=== PATIENT | female | born 1995 | race Caucasian/White ===

== ENCOUNTER 2016-11-12 09:21 | Emergency (ER) | payer MEDICAID, OTHER ==
[~2016-11-12] VITALS: Ht 160 cm; Wt 66.0 kg
[~2016-11-12 09:21] MED LIST: CIPR-9 PO; PROM25TA5 PO
[2016-11-12 09:28] VITALS: BP 111/75; PULSE 91; RESP 16; TEMP 99; O2SAT 98
[2016-11-12] MEDS ORDERED: PANTOPRAZOLE SODIUM 40 MG VIAL IV PUSH ONE (10:30)
[2016-11-12] MEDS ORDERED: SODIUM CHLOR 0.9% 1000 ML INJ 1,000 ML IV ONE (10:30)
--- NOTE | 2016-11-12 10:37 | PD ---
HPI Chief Complaint: GI Complaint Time Seen by Provider: 10:13 Travel History International Travel<30 days: No Contact w/Intl Traveler<30days: No Traveled to known affect area: No History of Present Illness HPI 20-year-old female complains of abdominal pain nausea vomiting. Patient states the symptoms started about 5 months ago. Patient states that the pain is sharp pain burning pain localized around the epigastric area. Patient denies any pain radiation. Patient states that she has intermittent nausea vomiting with the pain. Patient has been seen in emergency room several times in the past for the same problem. Patient was diagnosed with ulcer and given prescription for Prilosec and amoxicillin in the past. Patient states that the symptoms got better and get worse again. Patient denies any fever chills. Patient denies any dysuria or frequency. Patient denies any vaginal discharge or bleeding. PFSH Past Medical History Anxiety: Yes Depression: Yes Diabetes: No Diminished Hearing: No Medical other: Yes (ULCER, H PYLORI) Immunizations Current: Yes Migraines: Yes ?: Not LMP: Approx. 1 month ago, irr. Social History Alcohol Use: No Tobacco Use: Yes Substance Use: Yes (MARIJUANA) Allergies-Medications (Allergen,Severity, Reaction): Coded Allergies: Sulfa (Verified Allergy, Severe, RASH, HIVES, 11/12/16) Reported Meds & Prescriptions Reported Meds & Active Scripts Active Zofran Odt (Ondansetron Odt) 4 Mg Tab 4 Mg SL Q6HR PRN Bentyl (Dicyclomine HCl) 20 Mg Tab 20 Mg PO TID Carafate (Sucralfate) 1 Gm Tab 1 Gm PO QID On empty stomach Protonix (Pantoprazole Sodium) 20 Mg Tab 20 Mg PO DAILY Cipro (Ciprofloxacin HCl) 500 Mg Tab 500 Mg PO BID Review of Systems General / Constitutional: No: Fever Eyes: No: Visual changes HENT: No: Headaches Cardiovascular: No: Chest Pain or Discomfort Respiratory: No: Shortness of Breath Gastrointestinal: Positive: Nausea, Vomiting, Abdominal Pain Genitourinary: No: Dysuria Musculoskeletal: No: Pain Skin: No Rash Neurologic: No: Weakness Psychiatric: No: Depression Endocrine: No: Polydipsia Hematologic/Lymphatic: No: Easy Bruising Physical Exam Narrative GENERAL: Well-nourished, well-developed patient. SKIN: Warm and dry. HEAD: Normocephalic. EYES: No scleral icterus. No injection or drainage. NECK: Supple, trachea midline. No JVD or lymphadenopathy. CARDIOVASCULAR: Regular rate and rhythm without murmurs, gallops, or rubs. RESPIRATORY: Breath sounds equal bilaterally. No accessory muscle use. GASTROINTESTINAL: Abdomen soft, nondistended. Patient has mild tenderness on palpation epigastric area. No rebound tenderness. No mass. MUSCULOSKELETAL: No cyanosis, or edema. BACK: Nontender without obvious deformity. No CVA tenderness. Neurologic exam normal. Data Data Last Documented VS Vital Signs Date Time Temp Pulse Resp B/P Pulse Ox O2 Delivery O2 Flow Rate FiO2 11/12/16 12:52 88 17 100/59 100 Room Air 11/12/16 09:28 99.0 Orders Complete Blood Count With Diff (11/12/16 10:20) Comprehensive Metabolic Panel (11/12/16 10:20) Lipase (11/12/16 10:20) Urinalysis - C+S If Indicated (11/12/16 10:20) Iv Access Insert/Monitor (11/12/16 10:20) Ed Urine Pregnancytest Poc (11/12/16 10:20) Sodium Chlor 0.9% 1000 Ml Inj (Ns 1000 M (11/12/16 10:30) Pantoprazole Inj (Protonix Inj) (11/12/16 10:30) Ondansetron Inj (Zofran Inj) (11/12/16 11:30) Urine Culture (11/12/16 12:10) Labs Laboratory Tests Test 11/12/16 11/12/16 10:35 12:10 White Blood Count 5.2 TH/MM3 Red Blood Count 4.80 MIL/MM3 Hemoglobin 14.2 GM/DL Hematocrit 41.2 % Mean Corpuscular Volume 85.9 FL Mean Corpuscular Hemoglobin 29.5 PG Mean Corpuscular Hemoglobin 34.4 % Concent Red Cell Distribution Width 12.1 % Platelet Count 189 TH/MM3 Mean Platelet Volume 9.0 FL Neutrophils (%) (Auto) 73.0 % Lymphocytes (%) (Auto) 7.8 % Monocytes (%) (Auto) 14.9 % Eosinophils (%) (Auto) 0.0 % Basophils (%) (Auto) 4.3 % Neutrophils # (Auto) 3.8 TH/MM3 Lymphocytes # (Auto) 0.4 TH/MM3 Monocytes # (Auto) 0.8 TH/MM3 Eosinophils # (Auto) 0.0 TH/MM3 Basophils # (Auto) 0.2 TH/MM3 CBC Comment DIFF FINAL Differential Comment Sodium Level 142 MEQ/L Potassium Level 4.7 MEQ/L Chloride Level 108 MEQ/L Carbon Dioxide Level 23.8 MEQ/L Anion Gap 10 MEQ/L Blood Urea Nitrogen 11 MG/DL Creatinine 0.86 MG/DL Estimat Glomerular Filtration 85 ML/MIN Rate Random Glucose 99 MG/DL Calcium Level 8.8 MG/DL Total Bilirubin 0.5 MG/DL Aspartate Amino Transf 40 U/L (AST/SGOT) Alanine Aminotransferase 37 U/L (ALT/SGPT) Alkaline Phosphatase 78 U/L Total Protein 8.4 GM/DL Albumin 4.2 GM/DL Lipase 116 U/L Urine Color YELLOW Urine Turbidity HAZY Urine pH 6.0 Urine Specific [place] 1.024 Urine Protein TRACE mg/dL Urine Glucose (UA) NEG mg/dL Urine Ketones 40 mg/dL Urine Occult Blood TRACE Urine Nitrite POS Urine Bilirubin NEG Urine Leukocyte Esterase MOD Urine RBC 0-3 /hpf Urine WBC INNUM /hpf Urine Squamous Epithelial > 8 /hpf Cells Urine Bacteria MANY /hpf Urine Mucus FEW /lpf Microscopic Urinalysis Comment CULTURE INDICATED MDM Medical Decision Making Medical Screen Exam Complete: Yes Emergency Medical Condition: Yes Interpretation(s) 12:15 PM. CBC within normal limit. WBC 5.2. 73 neutrophil. 14 monos. CMP within normal limit. AST 40. 12:45 PM. UA positive for WBC and bacteria. Differential Diagnosis Differential diagnosis including gastritis, PUD, pancreatitis, cholecystitis, colitis, UTI, pyelonephritis. Narrative Course 20-year-old female with recurrent epigastric abdominal pain and nausea vomiting. Normal saline solution 1 L IV bolus. Protonix 40 mg IV. Diagnosis Primary Impression: Gastritis Qualified Code: K29.50 - Chronic gastritis without bleeding, unspecified gastritis type Additional Impression: UTI (urinary tract infection) Qualified Code: N30.00 - Acute cystitis without hematuria Patient Instructions: General Instructions Additional Instructions: Take medications as directed. Follow-up with personal physician, GI specialist. Return if worse. Med/Other Pt SpecificInfo: Prescription(s) given Scripts Nitrofurantoin Monohydrate Macrocrystals (Macrobid)100 Mg [id number] Mg PO BID #20 CAP Ref 0 Prov:Adrian Walker MD 11/12/16 Ondansetron Odt (Zofran Odt)4 Mg Tab4 Mg SL Q6HR PRN (Nausea/Vomiting) #10 TAB Prov:Adrian Walker MD 11/12/16 Dicyclomine (Bentyl)20 Mg Tab20 Mg PO TID #30 TAB Ref 0 Prov:Adrian Walker MD 11/12/16 Sucralfate (Carafate)1 Gm Tab1 Gm PO QID #120 TAB On empty stomach Prov:Adrian Walker MD 11/12/16 Pantoprazole (Protonix)20 Mg Tab20 Mg PO DAILY #30 TAB Prov:Adrian Walker MD 11/12/16 Ciprofloxacin (Cipro)500 Mg [id number] Mg PO BID #20 TAB Prov:Adrian Walker MD 11/12/16 Disposition: 01 DISCHARGE HOME Condition: Stable Adrian Walker MD Nov 12, 2016 10:29
[2016-11-12 10:44] LABS: AUTOMATED NEUTROPHIL # 3.8 TH/MM3 (1.8-7.7); BASOPHIL # 0.2 TH/MM3 (0-0.2); BASOPHIL % 4.3 % (0.0-2.0); HEMATOCRIT 41.2 % (35.0-46.0); HEMO FLAGS DIFF FINAL; LYMPH % 7.8 % (9.0-44.0); LYMPHOCYTE # 0.4 TH/MM3 (1.0-4.8); MEAN CELL VOLUME 85.9 FL (80.0-100.0); MEAN CORPUSCULAR HEMOGLOBIN 29.5 PG (27.0-34.0); MEAN CORPUSCULAR HGB CONC 34.4 % (32.0-36.0); MONO % 14.9 % (0.0-8.0); PLATELET COUNT 189 TH/MM3 (150-450); RED CELL DISTRIBUTION WIDTH 12.1 % (11.6-17.2); WHITE BLOOD COUNT 5.2 TH/MM3 (4.0-11.0)
[2016-11-12 10:47] LABS: CHLORIDE 108 MEQ/L (98-107); POTASSIUM 4.7 MEQ/L (3.5-5.1); SODIUM (NA) 142 MEQ/L (136-145)
[2016-11-12 10:51] LABS: ANION GAP 10 MEQ/L (5-15); BICARBONATE 23.8 MEQ/L (21.0-32.0); BLOOD UREA NITROGEN 11 MG/DL (7-18)
[2016-11-12 10:54] LABS: ALT (GPT) 37 U/L (9-42); AST (GOT) 40 U/L (16-38); GLOMERULAR FILTRATION RATE 85 ML/MIN (>89)
[2016-11-12 10:56] LABS: TOTAL BILIRUBIN ADULT 0.5 MG/DL (0.2-1.0)
[2016-11-12 10:57] LABS: ALKALINE PHOSPHATASE 78 U/L (45-117)
[2016-11-12] MEDS ORDERED: ONDANSETRON HCL 4 MG/2 ML VIAL IV PUSH ONE (11:30)
[2016-11-12 12:20] LABS: BLOOD, URINE TRACE (NEG); GLUCOSE,URINE NEG (NEG); KETONE, URINE 40 mg/dL (NEG); NITRITE,URINE POS (NEG)
[2016-11-12 12:21] LABS: URINE COLOR YELLOW (YELLW/STRAW)
[2016-11-12 12:26] LABS: MUCUS URINE FEW /lpf (OCC); RBC, URINE 0-3 /hpf (0-3); WBC, URINE INNUM /hpf (0-5)
[2016-11-12 12:27] LABS: BACTERIA, URINE MANY /hpf; COMMENT (UR) CULTURE INDICATED; CULTURE IF INDICATED CULTURE INDICATED; SQUAMOUS EPITHELIAL CELL URINE > 8 /hpf (0-5)
[2016-11-12 12:52] VITALS: BP 100/59; PULSE 88; RESP 17; O2SAT 100
[2016-11-12] MEDS ORDERED: PANT20 PO (12:52)
[2016-11-12] MEDS ORDERED: BENT20TA PO (12:52)
[2016-11-12] MEDS ORDERED: CARA1TAB6 PO (12:52)
[2016-11-12] MEDS ORDERED: ZOFR4TAB3 SL (12:52)
[2016-11-12] MEDS ORDERED: CIPR-9 PO (12:52)
[2016-11-12] MEDS ORDERED: MACR100C2 PO (13:14)
== END 2016-11-12 13:17 | disposition home or self-care (01) ==
LOC: PHED 09:21
DX: K29.50 Unspecified chronic gastritis without bleeding (principal); N30.00 Acute cystitis without hematuria; B96.1 Klebsiella pneumoniae [K. pneumoniae] as the cause of diseases classified elsewhere; Z72.0 Tobacco use; Z87.19 Personal history of other diseases of the digestive system; Z86.69 Personal history of other diseases of the nervous system and sense organs; Z86.59 Personal history of other mental and behavioral disorders
CPT/HCPCS: 80053; 81001; 83690; 84703; 85025; 87077; 87086; 87186; 96361; 96374; 96375; 99284; C9113; J2405; J7030

== ENCOUNTER 2017-06-29 15:11 | Emergency (ER) | payer MEDICAID, OTHER ==
[~2017-06-29] VITALS: Ht 160 cm; Wt 68.8 kg
[~2017-06-29 15:11] MED LIST changes: +BENT20TA PO; +CARA1TAB6 PO; +MACR100C2 PO; +PANT20 PO; -PROM25TA5 PO; +ZOFR4TAB3 SL
[2017-06-29 15:19] VITALS: BP 139/85; PULSE 88; RESP 20; TEMP 98.6; O2SAT 98
[2017-06-29] MEDS ORDERED: SODIUM CHLOR 0.9% 1000 ML INJ 1,000 ML IV ONE (15:40)
[2017-06-29] MEDS ORDERED: KETOROLAC TROMETHAMINE 30 MG/ML (IVP) VIAL IVP ONE (15:45)
[2017-06-29] MEDS ORDERED: SODIUM CHLORIDE 0.9% FLUSH 10 ML FLUSH IVF PRN (15:45)
[2017-06-29] MEDS ORDERED: ONDANSETRON HCL 4 MG/2 ML VIAL IVP ONE (15:45)
--- NOTE | 2017-06-29 15:49 | PD ---
HPI Chief Complaint: Flank/Kidney Pain Time Seen by Provider: 15:40 Travel History International Travel<30 days: No Contact w/Intl Traveler<30days: No Traveled to known affect area: No History of Present Illness HPI Patient presents with complaints of lower abdominal pain with left flank pain radiating into the groin. Reports frequent UTIs. Reports mild nausea. Denies vomiting. Initially pain was aggravated by standing for long periods however this morning it has been constant in nature. Denies . Denies any new chest pain shortness of breath urinary or bowel symptoms. Subjective fever. Past medical history for depression anxiety and migraines. PFSH Past Medical History Anxiety: Yes Depression: Yes Diabetes: No Diminished Hearing: No Immunizations Current: Yes Migraines: Yes ?: Not LMP: 2 MONTHS AGO Past Surgical History Surgical History: No Previous Surgery Social History Alcohol Use: No Tobacco Use: Yes Substance Use: Yes (MARIJUANA) Allergies-Medications (Allergen,Severity, Reaction): Coded Allergies: Sulfa (Sulfonamide Antibiotics) (Unverified Allergy, Severe, RASH, HIVES, 06/29/17) Reported Meds & Prescriptions Reported Meds & Active Scripts Active Keflex (Cephalexin) 500 Mg Cap 500 Mg PO Q12H 7 Days Macrobid (Nitrofurantoin Monoh/Nitrofur Macro) 100 Mg Cap 100 Mg PO BID Zofran Odt (Ondansetron Odt) 4 Mg Tab 4 Mg SL Q6HR PRN Bentyl (Dicyclomine HCl) 20 Mg Tab 20 Mg PO TID Carafate (Sucralfate) 1 Gm Tab 1 Gm PO QID On empty stomach Protonix (Pantoprazole Sodium) 20 Mg Tab 20 Mg PO DAILY Cipro (Ciprofloxacin HCl) 500 Mg Tab 500 Mg PO BID Review of Systems General / Constitutional: No: Fever Eyes: No: Visual changes HENT: No: Headaches Cardiovascular: No: Chest Pain or Discomfort Respiratory: No: Shortness of Breath Gastrointestinal: Positive: Abdominal Pain Genitourinary: Positive: Flank Pain, No: Dysuria Musculoskeletal: No: Pain Skin: No Rash Neurologic: No: Weakness Psychiatric: No: Depression Endocrine: No: Polydipsia Hematologic/Lymphatic: No: Easy Bruising Physical Exam Narrative GENERAL: Well-nourished, well-developed patient. SKIN: Focused skin assessment warm/dry. HEAD: Normocephalic. EYES: No scleral icterus. No injection or drainage. NECK: Supple, trachea midline. No JVD or lymphadenopathy. CARDIOVASCULAR: Regular rate and rhythm without murmurs, gallops, or rubs. RESPIRATORY: Breath sounds equal bilaterally. No accessory muscle use. GASTROINTESTINAL: Abdomen soft, diffusely tender lower abdomen, nondistended. MUSCULOSKELETAL: No cyanosis, or edema. BACK: Nontender without obvious deformity. No CVA tenderness. Data Data Last Documented VS Vital Signs Date Time Temp Pulse Resp B/P (MAP) Pulse Ox O2 Delivery O2 Flow Rate FiO2 06/29/17 19:04 66 18 113/62 (79) 99 06/29/17 18:02 Room Air 06/29/17 15:19 98.6 Orders Orders Complete Blood Count With Diff (06/29/17 15:40) Comprehensive Metabolic Panel (06/29/17 15:40) Urinalysis - C+S If Indicated (06/29/17 15:40) Ed Urine Pregnancytest Poc (06/29/17 15:40) Ct Abd/Pel W/O Iv Contrast (06/29/17 15:40) Ecg Monitoring (06/29/17 15:40) Iv Access Insert/Monitor (06/29/17 15:40) Ketorolac Inj (Toradol Inj) (06/29/17 15:45) Ondansetron Inj (Zofran Inj) (06/29/17 15:45) Sodium Chloride 0.9% Flush (Ns Flush) (06/29/17 15:45) Sodium Chlor 0.9% 1000 Ml Inj (Ns 1000 M (06/29/17 15:40) Urine Culture (06/29/17 16:49) Ceftriaxone Inj (Rocephin Inj) (06/29/17 17:45) Labs Laboratory Tests Test 06/29/17 16:10 06/29/17 16:49 White Blood Count 13.3 TH/MM3 Red Blood Count 4.73 MIL/MM3 Hemoglobin 13.9 GM/DL Hematocrit 41.4 % Mean Corpuscular Volume 87.5 FL Mean Corpuscular Hemoglobin 29.3 PG Mean Corpuscular Hemoglobin Concent 33.5 % Red Cell Distribution Width 12.1 % Platelet Count 245 TH/MM3 Mean Platelet Volume 9.4 FL Neutrophils (%) (Auto) 82.6 % Lymphocytes (%) (Auto) 8.5 % Monocytes (%) (Auto) 7.6 % Eosinophils (%) (Auto) 0.2 % Basophils (%) (Auto) 1.1 % Neutrophils # (Auto) 11.1 TH/MM3 Lymphocytes # (Auto) 1.1 TH/MM3 Monocytes # (Auto) 1.0 TH/MM3 Eosinophils # (Auto) 0.0 TH/MM3 Basophils # (Auto) 0.1 TH/MM3 CBC Comment AUTO DIFF Differential Comment AUTO DIFF CONFIRMED Blood Urea Nitrogen 11 MG/DL Creatinine 0.91 MG/DL Random Glucose 94 MG/DL Total Protein 8.4 GM/DL Albumin 4.2 GM/DL Calcium Level 9.4 MG/DL Alkaline Phosphatase 96 U/L Aspartate Amino Transf (AST/SGOT) 15 U/L Alanine Aminotransferase (ALT/SGPT) 21 U/L Total Bilirubin 0.8 MG/DL Sodium Level 137 MEQ/L Potassium Level 3.8 MEQ/L Chloride Level 103 MEQ/L Carbon Dioxide Level 25.3 MEQ/L Anion Gap 9 MEQ/L Estimat Glomerular Filtration Rate 79 ML/MIN Urine Collection Type CLEAN CATCH Urine Color YELLOW Urine Turbidity MOD Urine pH 7.0 Urine Specific [place] 1.018 Urine Protein 100 mg/dL Urine Glucose (UA) NEG mg/dL Urine Ketones 40 mg/dL Urine Occult Blood SMALL Urine Nitrite NEG Urine Bilirubin NEG Urine Leukocyte Esterase MOD Urine RBC 4-9 /hpf Urine WBC 25-49 /hpf Urine WBC Clumps FEW Urine Squamous Epithelial Cells 6-8 /hpf Urine Transitional Epithelial Cells 0-5 /hpf Urine Amorphous Sediment MOD Urine Bacteria MANY /hpf Microscopic Urinalysis Comment CULTURE INDICATED Urine Collection Time 1619 MDM Medical Decision Making Medical Screen Exam Complete: Yes Emergency Medical Condition: Yes Differential Diagnosis Nephrolithiasis, UTI, cystitis Narrative Course assessment and plan discussed with patient and partner bedside. Physician Communication Physician Communication Case discussed and care transferred to Dr. Santos Scripts Cephalexin (Keflex) 500 Mg Cap 500 MG PO Q12H for Infection for 7 Days, #14 CAP 0 Refills Prov: Sudha Mclaughlin MD 06/29/17 Geo Nash MD Jun 29, 2017 15:49
[2017-06-29 16:13] VITALS: BP 116/70; PULSE 81; RESP 18; O2SAT 99
[2017-06-29 16:34] LABS: AUTOMATED NEUTROPHIL # 11.1 TH/MM3 (1.8-7.7); BASOPHIL # 0.1 TH/MM3 (0-0.2); BASOPHIL % 1.1 % (0.0-2.0); EOSINOPHIL % 0.2 % (0.0-4.0); HEMATOCRIT 41.4 % (35.0-46.0); LYMPH % 8.5 % (9.0-44.0); LYMPHOCYTE # 1.1 TH/MM3 (1.0-4.8); MEAN CELL VOLUME 87.5 FL (80.0-100.0); MEAN CORPUSCULAR HEMOGLOBIN 29.3 PG (27.0-34.0); MEAN CORPUSCULAR HGB CONC 33.5 % (32.0-36.0); MONO % 7.6 % (0.0-8.0); NEUT % 82.6 % (16.0-70.0); PLATELET COUNT 245 TH/MM3 (150-450); RED BLOOD COUNT 4.73 MIL/MM3 (4.00-5.30); RED CELL DISTRIBUTION WIDTH 12.1 % (11.6-17.2); WHITE BLOOD COUNT 13.3 TH/MM3 (4.0-11.0)
[2017-06-29 16:36] LABS: HEMO FLAGS AUTO DIFF
[2017-06-29 17:00] LABS: BLOOD, URINE SMALL (NEG); GLUCOSE,URINE NEG (NEG); KETONE, URINE 40 mg/dL (NEG); NITRITE,URINE NEG (NEG)
[2017-06-29 17:03] LABS: SCAN/DIFF AUTO DIFF CONFIRMED
--- NOTE | 2017-06-29 17:23 | RADRPT ---
EXAM DATE/TIME: 06/29/2017 17:01 [place] COMPARISON: No previous studies available for comparison. INDICATIONS : Left flank pain that radiates to left lower quadrant, nausea. ORAL CONTRAST: No oral contrast ingested. RADIATION DOSE: 11.78 CTDIvol (mGy) MEDICAL HISTORY : None SURGICAL HISTORY : None. ENCOUNTER: Initial ACUITY: 3 days PAIN SCALE: 7/10 LOCATION: Left flank TECHNIQUE: Volumetric scanning of the abdomen and pelvis was performed. Using automated exposure control and ad justment of the mA and/or kV according to patient size, radiation dose was kept as low as reasonably achievable to obtain optimal diagnostic quality images. DICOM format image data is available electro nically for review and comparison. FINDINGS: LOWER LUNGS: The visualized lower lungs are clear. LIVER: Homogeneous density without lesion. There is no dilation of the biliary tree. No calcified gallston es. SPLEEN: Normal size without lesion. PANCREAS: Within normal limits. KIDNEYS: Normal in size and shape. There is no mass or renal calculi. There is mild prominence of the left ce ntral collecting system and ureter compared to the right. This is difficult to follow in the region o f the pelvis. There is a small calcification on the posterior aspect of the left side of the bladder in axial image #131 which could represent a small 2 mm distal ureteral calculus. There are adjacent c alcified phleboliths in the left side of the pelvis. ADRENAL GLANDS: Within normal limits. VASCULAR: There is no aortic aneurysm. BOWEL/MESENTERY: The stomach, small bowel, and colon demonstrate no acute abnormality. There is no free intraperitone al air or fluid. ABDOMINAL WALL: Within normal limits. RETROPERITONEUM: There is no lymphadenopathy. BLADDER: No wall thickening or mass. REPRODUCTIVE: Within normal limits. INGUINAL: There is no lymphadenopathy or hernia. MUSCULOSKELETAL: Within normal limits for patient age. CONCLUSION: 1. Possible small 2 mm distal left ureteral calculus versus phlebolith. There is slight prominence of the left collecting system and ureter compared to the right. 2. There are no renal calculi. David Victor MD on June 29, 2017 at 17:17 Board Certified Radiologist. This report was verified electronically.
[2017-06-29 17:25] LABS: METHOD OF COLLECTION CLEAN CATCH
[2017-06-29 17:26] LABS: URINE COLOR YELLOW (YELLW/STRAW)
[2017-06-29 17:28] LABS: BACTERIA, URINE MANY /hpf; COMMENT (UR) CULTURE INDICATED; COMMENT2 (UR) MUCOUS PRESENT; CULTURE IF INDICATED CULTURE INDICATED; TRANSITIONAL EPI CELLS, URINE 0-5 /hpf
[2017-06-29 17:32] LABS: ALKALINE PHOSPHATASE 96 U/L (45-117); ALT (GPT) 21 U/L (9-42); AST (GOT) 15 U/L (16-38); BLOOD UREA NITROGEN 11 MG/DL (7-18); GLOMERULAR FILTRATION RATE 79 ML/MIN (>89); TOTAL BILIRUBIN ADULT 0.8 MG/DL (0.2-1.0)
[2017-06-29 17:33] LABS: ANION GAP 9 MEQ/L (5-15); BICARBONATE 25.3 MEQ/L (21.0-32.0); CHLORIDE 103 MEQ/L (98-107); POTASSIUM 3.8 MEQ/L (3.5-5.1); SODIUM (NA) 137 MEQ/L (136-145)
[2017-06-29] MEDS ORDERED: cefTRIAXone INJ 1,000 MG in SODIUM CHLORIDE 0.9% INJ 100 ML IV ONE (17:45)
[2017-06-29] MEDS ORDERED: CEPH-460 PO (17:50)
--- NOTE | 2017-06-29 17:50 | PD ---
Data Data Last Documented VS Vital Signs Date Time Temp Pulse Resp B/P (MAP) Pulse Ox O2 Delivery O2 Flow Rate FiO2 06/29/17 16:13 81 18 116/70 (85) 99 Room Air 06/29/17 15:19 98.6 Orders Orders Complete Blood Count With Diff (06/29/17 15:40) Comprehensive Metabolic Panel (06/29/17 15:40) Urinalysis - C+S If Indicated (06/29/17 15:40) Ed Urine Pregnancytest Poc (06/29/17 15:40) Ct Abd/Pel W/O Iv Contrast (06/29/17 15:40) Ecg Monitoring (06/29/17 15:40) Iv Access Insert/Monitor (06/29/17 15:40) Ketorolac Inj (Toradol Inj) (06/29/17 15:45) Ondansetron Inj (Zofran Inj) (06/29/17 15:45) Sodium Chloride 0.9% Flush (Ns Flush) (06/29/17 15:45) Sodium Chlor 0.9% 1000 Ml Inj (Ns 1000 M (06/29/17 15:40) Urine Culture (06/29/17 16:49) Ceftriaxone Inj (Rocephin Inj) (06/29/17 17:45) Labs Laboratory Tests Test 06/29/17 16:10 06/29/17 16:49 White Blood Count 13.3 TH/MM3 Red Blood Count 4.73 MIL/MM3 Hemoglobin 13.9 GM/DL Hematocrit 41.4 % Mean Corpuscular Volume 87.5 FL Mean Corpuscular Hemoglobin 29.3 PG Mean Corpuscular Hemoglobin Concent 33.5 % Red Cell Distribution Width 12.1 % Platelet Count 245 TH/MM3 Mean Platelet Volume 9.4 FL Neutrophils (%) (Auto) 82.6 % Lymphocytes (%) (Auto) 8.5 % Monocytes (%) (Auto) 7.6 % Eosinophils (%) (Auto) 0.2 % Basophils (%) (Auto) 1.1 % Neutrophils # (Auto) 11.1 TH/MM3 Lymphocytes # (Auto) 1.1 TH/MM3 Monocytes # (Auto) 1.0 TH/MM3 Eosinophils # (Auto) 0.0 TH/MM3 Basophils # (Auto) 0.1 TH/MM3 CBC Comment AUTO DIFF Differential Comment AUTO DIFF CONFIRMED Blood Urea Nitrogen 11 MG/DL Creatinine 0.91 MG/DL Random Glucose 94 MG/DL Total Protein 8.4 GM/DL Albumin 4.2 GM/DL Calcium Level 9.4 MG/DL Alkaline Phosphatase 96 U/L Aspartate Amino Transf (AST/SGOT) 15 U/L Alanine Aminotransferase (ALT/SGPT) 21 U/L Total Bilirubin 0.8 MG/DL Sodium Level 137 MEQ/L Potassium Level 3.8 MEQ/L Chloride Level 103 MEQ/L Carbon Dioxide Level 25.3 MEQ/L Anion Gap 9 MEQ/L Estimat Glomerular Filtration Rate 79 ML/MIN Urine Collection Type CLEAN CATCH Urine Color YELLOW Urine Turbidity MOD Urine pH 7.0 Urine Specific [place] 1.018 Urine Protein 100 mg/dL Urine Glucose (UA) NEG mg/dL Urine Ketones 40 mg/dL Urine Occult Blood SMALL Urine Nitrite NEG Urine Bilirubin NEG Urine Leukocyte Esterase MOD Urine RBC 4-9 /hpf Urine WBC 25-49 /hpf Urine WBC Clumps FEW Urine Squamous Epithelial Cells 6-8 /hpf Urine Transitional Epithelial Cells 0-5 /hpf Urine Amorphous Sediment MOD Urine Bacteria MANY /hpf Microscopic Urinalysis Comment CULTURE INDICATED Urine Collection Time 1619 [facility] Supervised Visit with BETZAIDA: No Narrative Course This is a 21-year-old female who presents to the emergency department with left- sided flank pain. She appears well and feels much better after IV Toradol and IV fluids. She has evidence of a urinary tract infection which I suspect his progress to pyelonephritis. She has a small possible 2 mm left ureteral stone. I think her symptoms are more consistent with pyelonephritis and perhaps the stone is a phlebolith. She appears very comfortable. She doesn't appear toxic and vital signs are reassuring site think she can be discharged home. I did discuss with her the risk of an infection with a kidney stone if this is in fact a true stone and I urged her if she feels worse, develops fevers, weakness , lightheadedness or new symptoms that she should return to the emergency room. Patient expressed understanding. Diagnosis Primary Impression: Pyelonephritis Patient Instructions: General Instructions Additional Instruction: If you develop fever, persistent vomiting, severe back pain, or inability to eat return to the emergency department. Complete your antibiotics as prescribed. Stay well hydrated with Gatorade or water. Followup with your primary care physician in 2-3 days if your symptoms have not resolved. Med/Other Pt SpecificInfo: Prescription(s) given Scripts Cephalexin (Keflex) 500 Mg Cap 500 MG PO Q12H for Infection for 7 Days, #14 CAP 0 Refills Prov: Sudha Mclaughlin MD 06/29/17 Disposition: 01 DISCHARGE HOME Condition: Stable Sudha Mclaughlin MD Jun 29, 2017 17:50
[2017-06-29 18:02] VITALS: BP 110/58; PULSE 65; RESP 18; O2SAT 98
[2017-06-29 19:04] VITALS: BP 113/62
[2017-06-30] MEDS ORDERED: ZOFR4TAB PO (10:30)
== END 2017-06-29 19:14 | disposition home or self-care (01) ==
LOC: PHED 15:11
DX: N12 Tubulo-interstitial nephritis, not specified as acute or chronic (principal); B96.20 Unspecified Escherichia coli [E. coli] as the cause of diseases classified elsewhere; Z72.0 Tobacco use
CPT/HCPCS: 74176; 80053; 81001; 84703; 85025; 87077; 87086; 87186; 96361; 96365; 96375; 99285; J0696; J1885; J2405; J7030

== ENCOUNTER 2017-06-30 10:11 | Emergency (ER) | payer SELFPAY ==
[~2017-06-30] VITALS: Ht 160 cm; Wt 70.0 kg
[~2017-06-30 10:11] MED LIST changes: +CEPH-460 PO
[2017-06-30 10:16] VITALS: BP 113/77; PULSE 97; RESP 16; TEMP 99.1; O2SAT 99
[2017-06-30] MEDS ORDERED: ZOFR4TAB PO (10:30)
--- NOTE | 2017-06-30 10:31 | PD ---
HPI Chief Complaint: GI Complaint Time Seen by Provider: 10:28 Travel History International Travel<30 days: No Contact w/Intl Traveler<30days: No Traveled to known affect area: No History of Present Illness HPI Patient was seen yesterday for suspected pyelonephritis. She was given oral antibiotic. She did have complaints of nausea and vomiting yesterday. Zofran was discussed but patient did not receive a prescription. Repossessed today with continued nausea and vomiting requesting Zofran. Taking fluids well. Compliant with antibiotic. Denies any fever. No new rashes. PFSH Past Medical History Anxiety: Yes Depression: Yes Diabetes: No Diminished Hearing: No Immunizations Current: Yes Migraines: Yes ?: Not Social History Alcohol Use: No Tobacco Use: Yes Substance Use: Yes (MARIJUANA) Allergies-Medications (Allergen,Severity, Reaction): Coded Allergies: Sulfa (Sulfonamide Antibiotics) (Unverified Allergy, Severe, RASH, HIVES, 06/30/17) Reported Meds & Prescriptions Reported Meds & Active Scripts Active Zofran (Ondansetron HCl) 4 Mg Tab 4 Mg PO Q6HR PRN Keflex (Cephalexin) 500 Mg Cap 500 Mg PO Q12H 7 Days Macrobid (Nitrofurantoin Monoh/Nitrofur Macro) 100 Mg Cap 100 Mg PO BID Zofran Odt (Ondansetron Odt) 4 Mg Tab 4 Mg SL Q6HR PRN Carafate (Sucralfate) 1 Gm Tab 1 Gm PO QID On empty stomach Protonix (Pantoprazole Sodium) 20 Mg Tab 20 Mg PO DAILY Cipro (Ciprofloxacin HCl) 500 Mg Tab 500 Mg PO BID Review of Systems General / Constitutional: No: Fever Eyes: No: Visual changes HENT: No: Headaches Cardiovascular: No: Chest Pain or Discomfort Respiratory: No: Shortness of Breath Gastrointestinal: Positive: Nausea, Vomiting, No: Abdominal Pain Genitourinary: No: Dysuria Musculoskeletal: No: Pain Skin: No Rash Neurologic: No: Weakness Psychiatric: No: Depression Endocrine: No: Polydipsia Hematologic/Lymphatic: No: Easy Bruising Physical Exam Narrative GENERAL: Well-nourished, well-developed patient. SKIN: Focused skin assessment warm/dry. HEAD: Normocephalic. EYES: No scleral icterus. No injection or drainage. NECK: Supple, trachea midline. No JVD or lymphadenopathy. CARDIOVASCULAR: Regular rate and rhythm without murmurs, gallops, or rubs. RESPIRATORY: Breath sounds equal bilaterally. No accessory muscle use. GASTROINTESTINAL: Abdomen soft, non-tender, nondistended. MUSCULOSKELETAL: No cyanosis, or edema. BACK: Nontender without obvious deformity. No CVA tenderness. Data Data Last Documented VS Vital Signs Date Time Temp Pulse Resp B/P (MAP) Pulse Ox O2 Delivery O2 Flow Rate FiO2 06/30/17 10:16 99.1 97 16 113/77 (89) 99 Orders Orders Ondansetron Odt (Zofran Odt) (06/30/17 10:45) [facility] Medical Decision Making Medical Screen Exam Complete: Yes Emergency Medical Condition: Yes Differential Diagnosis Pyelonephritis, nausea and vomiting, nephrolithiasis Narrative Course Assessment discussed with patient and partner at bedside Diagnosis Primary Impression: Nausea & vomiting Qualified Codes: R11.2 - Nausea with vomiting, unspecified Patient Instructions: General Instructions Additional Instructions: Rest and fluids, encouraged to high-fiber bland diet. Follow-up with PCP. Return to emergency with any onset of new symptoms. Med/Other Pt SpecificInfo: Prescription(s) given Scripts Ondansetron (Zofran) 4 Mg Tab 4 MG PO Q6HR Y for NAUSEA OR VOMITING, #30 TAB 0 Refills Prov: Geo Nash MD 06/30/17 Disposition: 01 DISCHARGE HOME Condition: Good Geo Nash MD Jun 30, 2017 10:31
[2017-06-30] MEDS ORDERED: ONDANSETRON ODT 4 MG TAB PO ONE (10:45)
== END 2017-06-30 10:43 | disposition home or self-care (01) ==
LOC: PHEFT 10:11
DX: R11.2 Nausea with vomiting, unspecified (principal)
CPT/HCPCS: 99283